=== PATIENT | female | born 1985 | race Two or more races ===

== ENCOUNTER 2023-07-09 05:30 | Day surgery (SDC) | payer OTHER ==
[2023-07-09] MEDS ORDERED: IBU800 MG PO (12:12)
[2023-07-09] MEDS ORDERED: NEURONTIN300 MG PO (12:14)
== END 2023-07-09 13:35 | disposition home or self-care (01) ==
LOC: CIR.AMB 05:30
PROVIDERS: ATTEND Obstetrics & Gynecology Gynecology
DX: D25.2 Subserosal leiomyoma of uterus (principal); R10.2 Pelvic and perineal pain; D25.9 Leiomyoma of uterus, unspecified; Z20.822 Contact with and (suspected) exposure to COVID-19; I10 Essential (primary) hypertension